=== PATIENT | male | born 1980 | race Caucasian/White ===

== ENCOUNTER 2021-04-29 09:02 | Outpatient (CLI) | payer MEDICARE, MEDICAID, SELFPAY | END 2021-04-29 09:03 | disposition home or self-care (01) | LOC: ANHBWCAUD 09:03 | PROVIDERS: PCP Family Medicine; Visit Provider Family Medicine | DX: H90.3 Sensorineural hearing loss, bilateral (principal) | CPT/HCPCS: 92557; 92567 ==

== ENCOUNTER 2021-07-13 08:36 | Outpatient (RCR) | payer MEDICARE, MEDICAID, SELFPAY | END 2021-10-11 23:59 | disposition home or self-care (01) | LOC: ANHBWCAUD 08:36 | PROVIDERS: PCP Family Medicine; Visit Provider Family Medicine | DX: Z46.1 Encounter for fitting and adjustment of hearing aid (principal) | CPT/HCPCS: V5014 ==

== ENCOUNTER 2022-05-13 13:11 | Outpatient (CLI) | payer MEDICARE, MEDICAID, SELFPAY | END 2022-05-13 13:12 | disposition home or self-care (01) | LOC: ANHBWCAUD 13:11 | PROVIDERS: PCP Family Medicine; Visit Provider Family Medicine | DX: H91.93 Unspecified hearing loss, bilateral (principal) | CPT/HCPCS: 92557; 92567 ==